=== PATIENT | female | born 1970 ===

== ENCOUNTER 2017-04-04 23:57 | Emergency (ER) | payer MEDICARE, OTHER, MEDICAID ==
[2017-04-04 23:57] VITALS: BMI 28.3
[2017-04-05 00:07] VITALS: O2SAT 98
--- NOTE | 2017-04-05 00:33 | C.PDOC ---
History Of Present Illness Patient presents to the ER with a stating she is depressed and has suicidal ideation. Denies physical complaints at this time. Time Seen by Provider: 04/05/17 00:32 Chief Complaint (Nursing): Psychiatric Evaluation History Per: Patient History/Exam Limitations: no limitations Onset/Duration Of Symptoms: Days Current Symptoms Are (Timing): Still Present Suicide/Self Injury Attempted (Context): None Modifying Factor(s): None Severity: None Pain Scale Rating Of: 0 Associated Symptoms: Depression, Suicidal Thoughts. denies: Suicidal Plan Involuntary Hold By: None Recent travel outside of the [place]: No Past Medical History Reviewed: Historical Data, Nursing Documentation, Vital Signs Vital Signs: Last Vital Signs Temp 97.4 F L 04/05/17 00:02 Pulse 87 04/05/17 00:02 Resp 17 04/05/17 00:02 BP 125/80 04/05/17 00:02 Pulse Ox 98 04/05/17 01:01 - Medical History PMH: Bipolar Disorder, Hyperlipidemia, Schizophrenia Surgical History: No Surg Hx - [facility] Procedures INJECT/INFUSE NEC (05/09/15) NEBULIZER THERAPY (10/28/04) OTHER SKIN & SUBQ I D (03/31/14) PSYCHIAT DRUG THERAP NEC (10/14/04) Family History: States: No Known Family Hx - Social History Hx Tobacco Use: Yes Hx Alcohol Use: Yes (stopped 8 years ago) Hx Substance Use: Yes (marijuana) - Immunization History Hx Tetanus Toxoid Vaccination: No Hx Influenza Vaccination: No Hx Pneumococcal Vaccination: No Review Of Systems Constitutional: Negative for: Fever, Chills Gastrointestinal: Negative for: Nausea, Vomiting, Diarrhea Psych: Positive for: Depression, Suicidal ideation Physical Exam - Physical Exam Appears: Non-toxic Skin: Warm, Dry Oral Mucosa: Moist Chest: Symmetrical, No Tenderness Cardiovascular: Rhythm Regular, No Murmur Respiratory: No Rales, No Rhonchi, No Wheezing Gastrointestinal/Abdominal: Soft, No Tenderness Neurological/Psych: Oriented x3 ED Course And Treatment - Laboratory Results Result Diagrams: 04/05/17 00:57 04/05/17 00:57 O2 Sat by Pulse Oximetry: 98 (Room air) Pulse Ox Interpretation: Normal Progress Note: Blood work and urinalysis ordered. 4:26 AM Pt was cleared for discharge by dr machado. Pt will follow up with her own psychiatrist, dr enciso Reevaluation Time: 04:27 Reassessment Condition: Improved Disposition Counseled Patient/Family Regarding: Studies Performed, Diagnosis, Need For Followup - Disposition Referrals: Zak Enciso MD [Staff Provider] - Disposition: HOME/ ROUTINE Disposition Time: 00:33 Condition: FAIR Instructions: Schizoaffective Disorder (ED) - Clinical Impression Clinical Impression: Schizoaffective disorder - Scribe Statement The provider has reviewed the documentation as recorded by the Scribelly Barragan All medical record entries made by the Guiibelly were at my direction and personally dictated by me. I have reviewed the chart and agree that the record accurately reflects my personal performance of the history, physical exam, medical decision making, and the department course for this patient. I have also personally directed, reviewed, and agree with the discharge instructions and disposition.
[2017-04-05 00:59] LABS: RBC URINE 1 /hpf (0-3); URINE BACTERIA RARE (<OCC); URINE BILIRUBIN NEGATIVE (NEGATIVE); URINE BLOOD NEGATIVE (NEGATIVE); URINE COLOR Yellow (YELLOW); URINE GLUCOSE (UA) NORMAL (Normal); URINE KETONE NEGATIVE (NEGATIVE); URINE LEUKOCYTE ESTERASE NEG Leu/uL (Negative); URINE PROTEIN NEGATIVE (NEGATIVE); URINE UROBILINOGEN NORMAL mg/dL (0.2-1.0); WBC URINE < 1 /hpf (0-5)
[2017-04-05 01:00] LABS: BASO # 0.1 K/uL (0.0-0.2); BASO % 0.8 % (0.0-2.0); EOS # 0.3 K/uL (0.0-0.7); EOS % 2.8 % (0.0-4.0); HEMATOCRIT 37.3 % (34.0-47.0); LYMPH # 2.3 K/uL (1.0-4.3); LYMPH % 22.4 % (20.0-40.0); MEAN CELL VOLUME 83.8 fL (81.0-99.0); MEAN CORPUSCULAR HEMOGLOBIN 28.6 pg (27.0-31.0); MEAN CORPUSCULAR HGB CONC 34.1 g/dL (33.0-37.0); MEAN PLATELET VOLUME 8.8 fL (7.2-11.7); MONO # 1.1 K/uL (0.0-0.8); MONO % 11.3 % (0.0-10.0); RED CELL DISTRIBUTION WIDTH 17.3 % (11.5-14.5); WHITE BLOOD COUNT 10.1 K/uL (4.8-10.8)
[2017-04-05 01:13] LABS: CHLORIDE 109 mmol/L (98-107); POTASSIUM 3.7 mmol/L (3.6-5.2); SODIUM 145 mmol/L (132-148)
[2017-04-05 01:14] LABS: GFR AFRICAN-AMERICAN > 60
[2017-04-05 01:15] LABS: ALB/GLOB RATIO 1.1 (1.0-2.1); ALKALINE PHOSPHATASE 49 U/L (38-126); ALT/SGPT 24 U/L (9-52); AST/SGOT 18 U/L (14-36); BILIRUBIN,TOTAL 0.4 mg/dL (0.2-1.3); BLOOD UREA NITROGEN 9 mg/dL (7-17); CALCIUM 8.2 mg/dl (8.6-10.4); CARBON DIOXIDE 20 mmol/L (22-30); GLUCOSE,RANDOM 80 mg/dL (65-105); TOTAL PROTEIN 7.3 g/dL (6.3-8.3)
[2017-04-05 01:16] LABS: ALCOHOL SERUM 115 mg/dl (0-10)
[2017-04-05 04:30] VITALS: BP 126/76; PULSE 60; RESP 16; TEMP 98
== END 2017-04-05 04:34 | disposition home or self-care (01) ==
LOC: SUPCPDRO 23:57 → C.ER 23:57
DX: F25.9 Schizoaffective disorder, unspecified (principal)
CPT/HCPCS: 80053; 81001; 84703; 85025; 99284; G0480

== ENCOUNTER 2018-02-22 19:23 | Emergency (ER) | payer MEDICAID, MEDICARE, OTHER ==
[2018-02-22 19:23] VITALS: BMI 28.3
[2018-02-22 19:57] VITALS: PULSE 82; RESP 16; TEMP 98.7; O2SAT 96
[2018-02-22] MEDS ORDERED: Bacitracin 500 Units/gm Oint Foilpak UD ONE (20:13)
[2018-02-22] MEDS ORDERED: Tetanus/Diphtheria Toxoids 0.5 ml Syringe IM ONE ×2 (20:20→20:25)
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
== END 2018-02-22 20:41 | disposition home or self-care (01) ==
LOC: C.ER 19:23
DX: T21.22XA Burn of second degree of abdominal wall, initial encounter (principal); X12.XXXA Contact with other hot fluids, initial encounter; Y92.89 Other specified places as the place of occurrence of the external cause; Z23 Encounter for immunization